=== PATIENT | female | born 2000 | race Caucasian/White ===

== ENCOUNTER 2022-12-03 23:24 | Emergency (ER) | payer SELFPAY ==
[~2022-12-03] VITALS: Ht 160 cm; Wt 81.6 kg
--- NOTE | 2022-12-03 23:27 | NUR ---
MD AMARJIT YORK EXAMINING PATIENT IN [facility] [place]
[2022-12-03 23:35] VITALS: BP_SYST 145
--- NOTE | 2022-12-03 23:35 | NUR ---
Pt triaged and placed to ER waiting room in stable condition. Pt called 911 from [facility] with c/o left foot pain. Pt states that she stepped on something. Presents with redness to plantar aspect of left foot, skin intact, no trauma or injury noted. Pt states that she is homeless.
[2022-12-03] MEDS ORDERED: ACETAMINOPHEN 500 MG TABLET PO ONE (23:45)
[2022-12-04] MEDS ORDERED: IBUPROFEN 600 MG TABLET PO ONE
[2022-12-04 01:00] VITALS: BP_SYST 140
--- NOTE | 2022-12-04 01:00 | NUR ---
Patient given written and verbal discharge instructions and verbalizes understanding. ER MD discussed with patient the results and treatment provided. Patient in stable condition. ID arm band removed. Patient educated on pain management and to follow up with PMD. Pain Scale 0/10. Opportunity for questions provided and answered. Medication side effect fact sheet provided. Patient A/Ox4, VSS, ambulatory, resp even and unlabored. Patient accompanied by self and in stable condition upon discharge.
--- NOTE | 2022-12-04 15:55 | NUR ---
[employer]uty County Clerk re: homelessness At the time of receiving the referral, the patient has discharged. The patient appears homeless and there is no contact information available to reach the patient in order to offer additional resources.
== END 2022-12-04 01:00 | disposition home or self-care (01) ==
LOC: SED 23:24
DX: M79.672 Pain in left foot (principal); Z79.899 Other long term (current) drug therapy
CPT/HCPCS: 99283